=== PATIENT | female | born 1950 | race Caucasian/White ===

== ENCOUNTER 2024-12-10 07:48 | Outpatient (REF) | payer OTHER, SELFPAY ==
--- OUTSIDE RECORDS SUMMARY | 2024-12-08 09:15 | XMS_ITS | Encounter Summary ---
Author Organization [facility] Address [address] [place] [address] Care Team Providers Care Online Project Manager Name Role Phone Nhan Roque MD Primary Care Provider [phone] Reason for Visit * Reason Comments Med Refill Encounter Details Date Type Department Care Team (Late st Contact Info) Description 12/08/2024 9:15 AM EDT Office Visit Internal Medicine - [address] [phone] Rachel Darby, SHUN [address] [place] [id number] Mixed hyperlipidemia (Primary Dx); Hypertension, unspecified type; Peripheral neuralgia; Neuropathy; Chronic pain syndrome; Vitamin D deficiency; Irritable bowel syndrome with both constipation and diarrhea; Osteopenia of lumbar spine; Spinal stenosis at L4-L5 level; Anxiety Social History Tobacco Use Types Packs/Day Years Used Date Smoking Tobacco: Former Smokeless Tobacco: Former Quit: 03/12/2007 Tobacco Cessation:Counseling Given: Not Answered Alcohol Use Standard Drinks/Week Comments No 0 (1 standard drink = 0.6 oz pur e alcohol) Comments No Sex and Gender Information Value Date Recorded Sex Assigned at Female 07/18/2024 12:25 PM EDT Legal Sex Female 8:33 AM EST Gender Identity Female 07/18/2024 12:25 PM EDT Sexual Orientation Straight 07/18/2024 12 :25 PM EDT documented as of this encounter Last Filed Vital Signs Vital Sign Reading Time Taken Comments Blood Pressure 110/70 12/08/2024 9:35 AM EDT Pulse 89 12/08/2024 9:11 AM EDT auto cuff Temperature 36.6 C (97.9 F) 12/08/2024 9:11 AM EDT Respiratory Rate - - Oxygen Saturation - - Inhaled Oxygen Concentration - - Weight 75.9 kg (167 lb 4.8 oz) 12/08/2024 9:11 A M EDT Height - - Body Mass Index 29.64 09/17/2024 11:13 AM EDT documented in this encounter Ordered Prescriptions Prescription Sig Dispense Quantity Refills Last Filled Start Date End Date calcium carbonate-vitamin D (Oyster Shell Calcium-Vit D3) 500 mg-5 mcg (200 unit) per tablet Take 1 tablet by mouth 1 (one) time each day. 90 each 3 12/08/2024 12/08/2025 documented in this encounter Progress Notes * Rachel Rios, SHUN - 12/08/2024 9:15 AM EDT CHIEF COMPLAINT: Med Refill IDENTIFIER: Talia Narvaez is a 74 y.o. old female. HPI: Talia Narvaez is here today for med review follow-up. Hyperlipidemia. The patient is currently taking atorvastatin 40 mg 1 tablet by mouth daily and denies concerns or complaints. Last cholesterol panel was normal on 07/16/2024. Hypertension. Today's blood pressure is 117/99 with a pulse of 89. Blood pressure will be repeated later. No complaints of chest pain or palpitations, dizziness or lightheadedness, shortness of breath or fatigue. During visit today Referral neurology and neuropathy. Patient takes Lyrica 100 mg capsules as well as tramadol for pain in order to manage the symptoms. Chronic pain syndrome. Patient has pain due to the neuropathy as well as generalized bodyaches and does take tramadol as needed for the pain. Denies side effects. Patient has a history of vitamin D deficiency. Patient is taking calcium and vitamin D. IBS. Patient is not taking any medication for this but states he does have constipation followed bydiarrhea. Denies abdominal painduring today's visit. Osteopenia. Patient is taking calcium and vitamin D. Spinal stenosis. Patient continues taking tramadol as needed for pain. Anxiety. Patient is on Ativan as needed. Patient recently suffered a loss of her long-term, 10-yearboyfriend. Patient is dealing with the loss. ROS: Constitutional: no weakness fever/ sweats, or weight change HEENT: no acute vision changes, ear pain, sore throat, nasal discharge. Respiratory: no shortness of breath, cough or wheezing Cardiovascular:no chest pain or palpitations, no orthopnea or edema GI: no nausea, vomiting or diarrhea; no rectal bleeding or dark stools MSK: no joint or muscle pain, swelling or impaired ROM Neuro: no acute headaches, dizziness, weakness. PAST MEDICAL HISTORY: Patient Active Problem List Diagnosis Date Noted Vitamin B12 deficiency 01/06/2021 Spinal stenosis at L4-L5 level 02/21/2019 Peripheral neuralgia 11/22/2018 Asteroid hyalitis of left eye 02/07/2017 Nuclear sclerosis of both eyes 02/07/2017 Ocular hypertension, bilateral 02/07/2017 Cortical cataract of left eye 02/07/2016 Irritable bowel syndrome with both constipation and diarrhea 01/18/2015 Osteopenia 07/01/2014 Vitamin D deficiency 07/01/2014 Chronic pain 01/13/2014 Hyperlipemia 01/13/2014 Neuropathy 01/13/2014 Anxiety 12/16/2013 HTN (hypertension) 12/16/2013 ACTIVE MEDICATIONS: Medications Taking[1] ALLERGIES: Allergies[2] PHYSICAL EXAM: Visit Vitals BP 110/70 Pulse 89 Comment: auto cuff Temp 36.6 ??C (97.9 ??F) (Oral) Wt 75.9 kg (167 lb 4.8 oz) BMI 29.64 kg/m?? OB Status Postmenopausal Smoking Status Former BSA 1.79 m?? General: the patient is awake, alert, cooperative and in no acute distress. Lungs: clear to auscultation without increased respiratory rate or effort. Heart: RRR. S1 and S2 heard, no MRG Extremities: no edema NEURO: AAOx3, patient is ambulatory with a steady gait without use of assistive device. IMPRESSION: 1. Mixed hyperlipidemia 2. Hypertension, unspecified type 3. Peripheral neuralgia 4. Neuropathy 5. Chronic pain syndrome 6. Vitamin D deficiency 7. Irritable bowel syndrome with both constipation and diarrhea 8. Osteopenia of lumbar spine 9. Spinal stenosis at L4-L5 level 10. Anxiety ASSESMENT/ PLAN: 1. Hyperlipidemia. Stable. Continue current regimen. 2. Hypertension. Stable. Blood pressure rechecked and it is at 110/70. Continue current regimen. 3. Peripheral neuralgia, neuropathy, chronic pain syndrome and spinal stenosis. Stable. Patient to continue using the tramadol as Lyrica as prescribed. 4. Vitamin D deficiency. Stable. Patient to continue taking vitamin D supplements. 5. IBS. Stable. Patient declines medication for constipation. 6. Osteopenia. Stable. Patient to continue using calcium and vitamin D. 7. Anxiety. Stable. Patient uses lorazepam as needed due to the loss of her longtime partner. Patient to follow-up in 3 months with PCP. Medication and lab orders: No orders of the defined types were placed in this encounter. Other orders: None Rachel Rios NP on 12/08/2024 at 10:34 AM EDT Discussed red flags that would warrant further evaluation. Plan of care reviewed with patient and patient verbalized understanding and is in agreement with plan. Today's documentation was made using voice recognition software.This note may contain grammatical errors secondary to this software. [1] Outpatient Medications Marked as Taking for the 12/08/24 encounter (Office Visit) with Rachel Rios NP Medication Sig Dispense Refill atorvastatin (LIPITOR) 40 mg tablet TAKE 1 TABLET BY MOUTH EVERY DAY 90 tablet 0 LORazepam (ATIVAN) 0.5 mg tablet TAKE 1 TABLET BY MOUTH EVERY DAY FOR 28 DAYS MAX 0.5MG/DAY 28 tablet 0 pregabalin (LYRICA) 100 mg capsule take 1 capsule by mouth three times a day for 30 days traMADoL (ULTRAM) 50 mg tablet TAKE 1 TABLET BY MOUTH EVERY 8 HOURS NEEDED FOR SEVERE PAIN. 84 tablet 0 [2] Allergies Allergen Reactions Codeine Up set attiude documented in this encounter Plan of Treatment Upcoming Encounters Date Type Department Care Team (Late st Contact Info) Description 03/10/2025 8:15 AM EST Office Visit Internal Medicine - [address] [phone] Nhan Roque MD [address] [place] [id number] documented as of this encounter Visit Diagnoses Diagnosis Mixed hyperlipidemia- Primary Hypertension, unspecified type Peripheral neuralgia Unspecified hereditary and idiopathic peripheral neuropathy Neuropathy Mononeuritis of unspecified site Chronic pain syndrome Vitamin D deficiency Irritable bowel syndrome with both constipation and diarrhea Osteopenia of lumbar spine Spinal stenosis at L4-L5 level Anxiety Anxiety state, unspecified documented in this encounter Care Teams Online Project Manager Relationship Specialty Start Date End Date Nhan Roque MD [address] [place] [id number] PCP - General Internal Medicine 03/10/24 documented as of this encounter
--- OUTSIDE RECORDS SUMMARY | 2024-12-10 07:52 | XMS_ITS | Clinical Summary ---
Author Organization [place] [address] [address] [facility] Address [address] [place] [address] Phone Care Team Providers Care [employer] Supervisor Name Role Phone Nhan Roque MD Primary Care Provider [phone] Allergies Active Allergy Reactions Criticality Noted Date Comments Codeine 12/08/2013 Up set attiude Medications pregabalin (LYRICA) 100 mg capsule take 1 capsule by mouth three times a day for 30 days Active atorvastatin (LIPITOR) 40 mg tabletIndicatio ns:Hyperlipidem ia, unspecified TAKE 1 TABLET BY MOUTH EVERY DAY 90 tablet 5 Active LORazepam (ATIVAN) 0.5 mg tablet TAKE 1 TABLET BY MOUTH EVERY DAY FOR 28 DAYS MAX 0.5MG/DAY 28 tablet 5 Active traMADoL (ULTRAM) 50 mg tablet TAKE 1 TABLET BY MOUTH EVERY 8 HOURS NEEDED FOR SEVERE PAIN. 84 tablet 5 Active calcium carbonate-vitam in D (Oyster Shell Calcium-Vit D3) 500 mg-5 mcg (200 unit) per tablet Take 1 tablet by mouth 1 (one) time each day. 90 each 3 5 026 Active atorvastatin (LIPITOR) 40 mg tabletIndicatio ns:Hyperlipidem ia, unspecified TAKE 1 TABLET BY MOUTH EVERY DAY 90 tablet 5 025 Discontinued LORazepam (ATIVAN) 0.5 mg tablet TAKE 1 TABLET BY MOUTH EVERY DAY FOR 28 DAYS MAX 0.5MG/DAY 28 tablet 5 025 Discontinued traMADoL (ULTRAM) 50 mg tablet TAKE 1 TABLET BY MOUTH EVERY 8 HOURS NEEDED FOR SEVERE PAIN. 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 Nuclear sclerosis of both eyes 02/07/2017 Ocular hypertension, bilateral 02/07/2017 Cortical cataract of left eye 02/07/2016 Irritable bowel syndrome wit h both constipation and diarrhea 01/18/2015 Osteopenia 07/01/2014 Vitamin D deficiency 07/01/2014 Chronic pain 01/13/2014 Hyperlipemia 01/13/2014 Neuropathy 01/13/2014 Anxiety 12/16/2013 HTN (hypertension) 12/16/2013 Resolved Problems Problem Noted Date Diagnosed Date Resolved Date History of alcohol abuse 08/10/2015 Encounters Date Type Department Care Team Description 12/08/2024 9:15 AM EDT Office Visit Internal Medicine - [address] [phone] Rachel Darby NP Mixed hyperlipidemia (Primary Dx); Hypertension, unspecified type; Peripheral neuralgia; Neuropathy; Chronic pain syndrome; Vitamin D deficiency; Irritable bowel syndrome with both constipation and diarrhea; Osteopenia of lumbar spine; Spinal stenosis at L4-L5 level; Anxiety 09/29/2024 Telephone Internal Medicine - [address] [phone] Nhan Roque MD 09/24/2024 4:46 PM EDT - 09/24/2024 11:59 PM EDT Hospital Encounter [facility] [address] [place] [address] Elbow mass, left Discharge Disposition: Home or Self Care 09/17/2024 11:00 AM EDT Consult Orthopedic Surgery [facility] [address] [place] [id number] Preston Muñiz MD Elbow mass, left (Primary Dx); Ganglion cyst; Numbness and tingling in left hand from Last 3 Months Immunizations Immunization Administration Dates Next Due Influenza Quadravalent, MDCK , 0.5ml, preservative free (Flucelvax) 6mo and older 11/22/2018 Influenza trivalent, 0.5mL ( Fluad) 65yo and older 12/15/2022,12/19/2021,11/16/2020,11/18 Influenza trivalent, 0.5mL, preservative free (Fluarix; FluLaval; Fluzone) ages 6mo and older (Afluria) 3 years and older 11/23/2017 Moderna SARS-CoV-2 COVID-19, mRNA, LNP-S, preservative free 06/28/2021,02/10/2021,12/28/2020,06/24 Pneumococcal polysaccharide 23 valent (Pneumovax 23) 2yo and older 04/28/2014 Tdap Tetanus diptheria acell ular pertussis (Boostrix; Adacel) 7yo and older 01/13/2014 Zoster Live 08/25/2014 Surgical History Surgery Date Site/Laterality Comments COLONOSCOPY 02/01/2015 PROCEDURE: HISTORICAL COLONOSCOPY; COMMENT: Negative, limited examination because of poor preparation. OTHER SURGICAL HISTORY 02/24/2015 PROCEDURE: FECAL DNA ANALYSIS; COMMENT: Negative Cologuard test. WRIST MASS EXCISION Left PROCEDURE: LA EXCISION GANGLION WRIST DORSAL/VOLAR PRIMARY Medical History Medical History Date Comments Alcoholic hepatitis (CMS/HCC V28) DX:Alcoholic hepatitis Peripheral neuropathy DX:Periphe ral neuropathy Spastic colon DX:Spastic colon Alcoholism /alcohol abuse DX:Alc oholism /alcohol abuse Thoracic outlet syndrome DX:Thor acic outlet syndrome Diverticulosis DX:Diverticulosi s Anemia DX:Anemia HTN (hypertension) DX:HTN (hyper tension) Ataxia DX:Ataxia; COMME NT: post column - followed by der. [facility] neuro History of colonoscopy 03/03/2015 DX:Histor y of colonoscopy; COMMENT: Difficult/incomplete colonoscopy 2014, negative Cologuard testing 02/24/2015, consider repeat Cologuard testing 02/24/2018. Family History Medical History Relation Name Comments No Known Problems Brother 1 Lung cancer Brother 2 Alcohol abuse Father Diabetes Father Cataracts Mother Breast cancer Other cousin Other: Other Sister 1 brain wall thin hadley Alzheimer's disease Sister 2 Blindness Neg Hx Glaucoma Neg Hx Macular degeneration Neg Hx Strabismus Neg Hx Relation Name Status Comments Brother 1 Alive Brother 2 Father Mother Other cousin Sister 1 Sister 2 Social History Tobacco Use Types Packs/Day Years [...] Orientation Straight 07/18/2024 12 :25 PM EDT Obstetrics History Last Filed Vital Signs Vital Sign Reading Time Taken Comments Blood Pressure 110/70 12/08/2024 9:35 AM EDT Pulse 89 12/08/2024 9:11 AM EDT auto cuff Temperature 36.6 C (97.9 F) 12/08/2024 9:11 AM EDT Respiratory Rate - - Oxygen Saturation - - Inhaled Oxygen Concentration - - Weight 75.9 kg (167 lb 4.8 oz) 12/08/2024 9:11 A M EDT Height 160 cm (5' 3 ) 09/17/2024 11:13 AM EDT Body Mass Index 29.64 09/17/2024 11:13 AM EDT Plan of Treatment Upcoming Encounters Date Type Department Care Team (Late st Contact Info) Description 03/10/2025 8:15 AM EST Office Visit Internal Medicine - [address] [phone] Nhan Roque MD [address] [place] [phone] Health Maintenance Due Date Last Done Comments Falls Risk Assessment 02/12/2022 Osteoporosis Screening (Bone Density Screening) 02/12/2022 Social Influencers of Health Screening 02/12/2022 Depression Screening 03/12/2024 COVID-19 Vaccine ( season) 2024 02/24/2024, 12/19/2021, 06/28/2021, Additional history exists Influenza Vaccine (#1) 2024 , 12/15/2022, 12/19/2021, Additional history exists Hypertension/CHF/CAD Annual BMP Blood Test 07/16/2025 07/16/2024, 12/03/2023, 12/03/2023 Cholesterol Screening (Lipid Panel) 07/16/2029 07/16/2024, 12/03/2023, 12/03/2023 DTaP,Tdap,and Td Vaccines (3 - Td or Tdap) 12/16/2033 12/17/2023, 01/13/2014 Hepatitis C Screening Completed 12/17/2013 Colorectal Cancer Screening: Colonoscopy Discontinued 02/01/2015 Pneumococcal Vaccine: 50+ Years Completed 11/29/2020, 11/25/2019, 04/28/2014 RSV Immunization Adult Patients Completed 12/15/2022 Zoster Vaccines Completed 02/24/2024, 09/2023, 08/25/2014 Breast Cancer Screening Discontinued 08/16/19, 04/10/2023, 03/27/2022, Additional history exists HIB Vaccines Aged Out No longer eligi ble based on patient's age to complete this topic HPV Vaccines Aged Out No longer eligi ble based on patient's age to complete this topic Hepatitis A Vaccines Aged Out No long er eligible based on patient's age to complete this topic Hepatitis B Vaccines Aged Out No long er eligible based on patient's age to complete this topic IPV Vaccines Aged Out No longer eligi ble based on patient's age to complete this topic MMR Vaccines Aged Out No longer eligi ble based on patient's age to complete this topic Meningococcal ACWY Vaccine Aged Out N o longer eligible based on patient's age to complete this topic Meningococcal B Vaccine Aged Out No l onger eligible based on patient's age to complete this topic RSV Immunization Patients Under 20 months Aged Out No longer eligible based on patient's age to complete this topic Varicella Vaccines Aged Out No longer eligible based on patient's age to complete this topic Procedures Procedure Name Priority Date/Time Associated Diagnosis Comments MR ELBOW WO CONTRAST LEFT Routine 09/24/2024 6:58 PM EDT Elbow mass, left XR ELBOW 3+ VIEWS LEFT Routine 09/17/2024 10:59 AM EDT Ganglion cyst MG MAMMO DIGITAL SCREENING W JOHNNIE BILAT Routine 08/15/2024 9:20 AM EDT Encounter for screening mammogram for breast cancer BASIC METABOLIC PANEL Routine 07/16/2024 9:36 AM EDT Pure hypercholesterolemia LIPID PANEL WITH REFLEX TO DIRECT LDL Routine 07/16/2024 9:36 AM EDT Pure hypercholesterolemia COLONOSCOPY Routine 02/01/2015 HEPATITIS C SCREENING Routine 12/17/2013 from Last 3 Months or Most Recently Relevant to Health Maintenance Results * MR Elbow wo Contrast Left (09/24/2024 6:58 PM EDT) Anatomical Region Laterality Modality Upper Extremities, Elbow Left Magneti c Resonance 09/25/2024 10:0 7 AM EDT Impressions 09/30/2024 9:44 AM EDT 1. No soft tissue mass or fluid collection at a site of indicated concern overlying the posterolateral proximal ulna. 2. Nonspecific edema superficial to medial humeral epicondyle. The underlying common flexor tendon appears normal. -------- FINAL REPORT -------- Dictated By: Karlos Melara Dictated Date: 09/25/2024 10:07 ET Assigned Physician: Karlos Melara Reviewed and Electronically Signed By: Karlos Melara Signed Date: 09/30/2024 09:44 ET Workstation ID: [id number] Transcribed By: Self Edit Transcribed Date: 09/25/2024 11:46 ET Narrative 09/30/2024 9:44 AM EDT PROCEDURE: Noncontrast MRI of the left elbow. TECHNIQUE: Multiplanar multisequence MRI of the left elbow without intravenous contrast administration. HISTORY: posterolateral soft tissue mass COMPARISON: None. FINDINGS: This study is mildly limited by patient motion. A marker placed to indicate the site of palpable concern overlies the posterolateral proximal ulna. There is no underlying soft tissue mass or fluid collection. The triceps, biceps, and brachialis tendons are normal. There is edema in the subcutaneous fat overlying the medial humeral epicondyle, superficial to the common flexor tendon origin. The common flexor and extensor tendon origins appear normal. The regional musculature is normal. The collateral ligaments of the elbow are normal. Regional neurovascular structures are normal. No significant elbow joint effusion. Normal alignment. Minimal osteophytes arising from the coronoid and olecranon process of the ulna and along the lateral trochlea. Procedure Note Karlos Melara MD - 09/30/2024 PROCEDURE: Noncontrast MRI of the left elbow. TECHNIQUE: Multiplanar multisequence MRI of the left elbow withoutintravenous contrast administration. HISTORY: posterolateral soft tissue mass COMPARISON: None. FINDINGS: This study is mildly limited by patient motion. A marker placed to indicate the site of palpable concern overlies theposterolateral proximal ulna. There is no underlying soft tissue mass orfluid collection. The triceps, biceps, and brachialis tendons are normal. There is edema in the subcutaneous fat overlying the medial humeralepicondyle, superficial to the common flexor tendon origin. The commonflexor and extensor tendon origins appear normal. The regionalmusculature is normal. The collateral ligaments of the elbow are normal. Regional neurovascular structures are normal. No significant elbow joint effusion. Normal alignment. Minimal osteophytes arising from the coronoid andolecranon process of the ulna and along the lateral trochlea. IMPRESSION: 1. No soft tissue mass or fluid collection at a site of indicated concernoverlying the posterolateral proximal ulna. 2. Nonspecific edema superficial to medial humeral epicondyle. Theunderlying common flexor tendon appears normal. -------- FINAL REPORT -------- Dictated By: Karlos Melara Dictated Date: 09/25/2024 10:07 ET Assigned Physician: Karlos Melara Reviewed and Electronically Signed By: Karlos Melara Signed Date: 09/30/2024 09:44 ET Workstation ID: [id number] Transcribed By: Self Edit Transcribed Date: 09/25/2024 11:46 ET us Preston Muñiz MD IMG MRI PROCEDURES Final Result * XR Elbow 3+ Views Left (09/17/2024 10:59 AM EDT) Anatomical Region Laterality Modality Upper Extremities, Elbow Left Compute d Radiography Narrative 09/17/2024 11:42 AM EDT Three-view x-rays of the left elbow shows no evidence of fracture or dislocation. The radiocapitellar and ulnohumeral joint are congruent. Soft tissue shadows appear normal. Impression: Normal radiographs of the left elbow without acute osseous abnormalities. us Preston Muñiz MD IM XR PROCEDURES Final Result * MG Mammo Digital Screening w Johnnie bilat (08/15/2024 9:20 AM EDT) Anatomical Region Laterality Modality Breast Bilateral Mammography 08/15/2024 9:40 AM EDT Impressions 08/15/2024 9:44 AM EDT No mammographic evidence of malignancy. A negative mammogram in the presence of a clinically suspicious palpable abnormality does not preclude the possibility of malignancy or alter the indications for biopsy. PQRI CPT II 3342F Code 85358, 57576 PQRI 225 CPT II 7025F TISSUE DENSITY: The breasts are almost entirely fatty. (BI-RADS Category A) IMPRESSION: Benign. BI-RADS CATEGORY: 2 - BENIGN RECOMMENDATION: Screening bilateral mammogram is recommended in 1 year. Mammo Location: [facility], [address] [place] [address] -------- FINAL REPORT -------- Dictated By: Abelardo Deluna Dictated Date: 08/15/2024 09:40 ET Assigned Physician: Abelardo Deluna Reviewed and Electronically Signed By: Abelardo Deluna Signed Date: 08/15/2024 09:44 ET Workstation ID: [id number] Transcribed By: Self Edit Transcribed Date: 08/15/2024 09:40 ET Narrative 08/15/2024 9:44 AM EDT CLINICAL: The patient is a 74 years Female presenting for routine screening mammography. COMPARISON: Most recently 04/10/2023 and most remotely 03/02/2017. TECHNIQUE: Full-field digital mammography of the breasts bilaterally consisting of tomosynthesis in MLO and CC projection is performed in the [employer] 2000-D unit. Computer aided detection utilizing the iCAD system was utilized. FINDINGS: The breasts are again seen to be largely fatty replaced. Scattered vascular calcifications are noted. There is no suspicious cluster of microcalcifications, mass, or area of architectural distortion. There is no skin thickening or nipple retraction. Procedure Note Abelardo Deluna MD - 08/15/2024 CLINICAL: The patient is a 74 years Female presenting for routinescreening mammography. COMPARISON: Most recently 04/10/2023 and most remotely 03/02/2017. TECHNIQUE: Full-field digital mammography of the breasts bilaterallyconsisting of tomosynthesis in MLO and CC projection is performed in theRestorius Senographe 2000-D unit. Computer aided detection utilizing the iCADsystem was utilized. FINDINGS: The breasts are again seen to be largely fatty replaced.Scattered vascular calcifications are noted. There is no suspiciouscluster of microcalcifications, mass, or area of architectural distortion.There is no skin thickening or nipple retraction. IMPRESSION: No mammographic evidence of malignancy. A negative mammogram in the presence of a clinically suspicious palpableabnormality does not preclude the possibility of malignancy or alter theindications for biopsy. PQRI CPT II 3342F Code 31837, 39779 PQRI 225 CPT II 7025F TISSUE DENSITY: The breasts are almost entirely fatty. (BI-RADS CategoryA) IMPRESSION: Benign. BI-RADS CATEGORY: 2 - BENIGN RECOMMENDATION: Screening bilateral mammogram is recommended in 1 year. Mammo Location: [facility], [address] [place] [id number] -------- FINAL REPORT -------- Dictated By: Abelardo Deluna Dictated Date: 08/15/2024 09:40 ET Assigned Physician: Abelardo Deluna Reviewed and Electronically Signed By: Abelardo Deluna Signed Date: 08/15/2024 09:44 ET Workstation ID: [id number] Transcribed By: Self Edit Transcribed Date: 08/15/2024 09:40 ET us Self Referral Sppl IMG BI PROCEDURES Final Resul t * Lipid panel with reflex to direct LDL (07/16/2024 9:36 AM EDT) Cholesterol 167 0 - 200 mg/dL LAB CHEMISTRY METHOD 07/16/2024 5:[address] [facility] Triglycerides 116 0 - 150 mg/dL LAB CHEMISTRY METHOD 07/16/2024 5:[address] [facility] HDL 65 >=40 mg/dL LAB CHEMISTRY METHOD 07/16/2024 5:[address] [facility] LDL Calculated 79 0 - 100 mg/dL LAB CHEMISTRY METHOD 07/16/2024 5:[address] [facility] VLDL Cholesterol Rajeev 23.2 mg/dL LAB CHEMISTRY METHOD 07/16/2024 5:[address] [facility] Non HDL Chol. (LDL+VLDL) 102 <145 mg/dL LAB CHEMISTRY METHOD 07/16/2024 5:[address] [facility] Chol/HDL Ratio 2.6 0.0 - 4.4 LAB CHEMISTRY METHOD 07/16/2024 5:08 PM [facility] Blood Venous blood specimen / Unknown Venipuncture / Unknown 07/16/2024 9:36 AM EDT 07/16/2024 9:36 AM EDT us Nhan Roque MD LAB BLOOD ORDERABLES Final Res ult [facility] [address] [place] [address], [place] [phone] * Basic metabolic panel (07/16/2024 9:36 AM EDT) Sodium 137 133 - 145 mmol/L LAB CHEMISTRY METHOD 07/16/2024 5:[address] [facility] Potassium 4.5 3.5 - 5.5 mmol/L LAB CHEMISTRY METHOD 07/16/2024 5:08 PM [facility] Chloride 105 96 - 110 mmol/L LAB CHEMISTRY METHOD 07/16/2024 5:08 PM [facility] CO2 26 21 - 32 mmol/L LAB CHEMISTRY METHOD 07/16/2024 5:08 PM [facility] Anion Gap 6 3 - 11 LAB CHEMISTRY METHOD 07/16/2024 5:08 PM [facility] Glucose 92 70 - 100 mg/dL LAB CHEMISTRY METHOD 07/16/2024 5:08 PM [facility] BUN 11 5 - 25 mg/dL LAB CHEMISTRY METHOD 07/16/2024 5:08 PM [facility] Creatinine 0.94 0.50 - 1.10 mg/dL LAB CHEMISTRY METHOD 07/16/2024 5:08 PM [facility] eGFR 63 >=60 mL/min/1. 73m2 LAB CHEMISTRY METHOD 07/16/2024 5:08 PM [facility] Comment:Calculation based on the Chronic Kidney Disease Epidemiology Collaboration (CKD-EPI) equation refit without adjustment for race. BUN/Creatinine Ratio 11.7 LAB CHEMISTRY METHOD 07/16/2024 5:08 PM [facility] Calcium 9.5 8.5 - 10.5 mg/dL LAB CHEMISTRY METHOD 07/16/2024 5:08 PM [facility] Blood Venous blood specimen / Unknown Venipuncture / Unknown 07/16/2024 9:36 AM EDT 07/16/2024 9:36 AM EDT us Nhan Roque MD LAB BLOOD ORDERABLES Final Res ult [facility] [address] [place] [address], * Colonoscopy (02/01/2015) Colonoscopy no interpretation , abstracted Anatomical Region Laterality Modality Other us Historical Provider HEALTH MAINTENANCE Final Result * Hepatitis C Screening (12/17/2013) Hepatitis C Screening abstracted us Historical Provider HEALTH MAINTENANCE Final Result from Last 3 Months or Most Recently Relevant to Health Maintenance Insurance [facility] Advance Directives Documents on File Type Date Recorded Patient Primary Health Care Nurse Expl anation Health Care Decision (hx) 10/04/2013 AD RAIN DIRECTIVE Health Care Decision (hx) 10/04/2013 AD RAIN DIRECTIVE Health Care Decision (hx) 10/04/2013 AD RAIN DIRECTIVE Health Care Decision (hx) 10/04/2013 AD RAIN DIRECTIVE Care Teams [employer] Supervisor Relationship Specialty Start Date End Date Nhan Roque MD [address] [place] [id number] PCP - General Internal Medicine 03/10/24
--- NOTE | 2024-12-10 08:34 | EMG_ITS ---
Chief complaint: History of peripheral neuropathy attributed with past alcohol abuse. Noted a lump on left elbow. Complains of numbness on left hand particularly 5th digit. Reason for referral: Evaluate for ulnar neuropathy Referred by: Jacobo HODGE Procedure done: Left upper extremity NCS/EMG Precautions and/or limitations: None The limb temperature was monitored continuously and remained between 32-36 degrees C during the performance of the NCS. Ulnar motor NCS was performed with moderate elbow flexion between 70-90 degrees, with across-elbow distance of 10 cm. Nerve Conduction Studies Anti Sensory Summary Table ?Stim Site NR Onset (ms) Norm Onset (ms) Peak (ms) Norm Peak (ms) O-P Amp (?V) Norm O-P Amp Site1 Site2 Delta-0 (ms) Dist (cm) [place] (m/s) Norm [place] (m/s) Left Median Anti Sensory (2nd Digit) Wrist ? 3.6 4.8 <3.6 13.8 >10 Wrist 2nd Digit 3.6 14.0 39 Left Radial Anti Sensory (Thumb) Forearm ? 2.3 3.0 <3.1 9.0 Forearm Thumb 2.3 0.0 Left Ulnar Anti Sensory (5th Digit) Wrist ? 3.3 4.4 <3.7 12.0 >15.0 Wrist 5th Digit 3.3 14.0 42 Motor Summary Table ?Stim Site NR Onset (ms) Norm Onset (ms) O-P Amp (mV) Norm O-P Amp iAmp (mV) Amp (1st) (%) Site1 Site2 Delta-0 (ms) Dist (cm) [place] (m/s) Norm [place] (m/s) Left Median Motor (Abd Poll Brev) Wrist ? 4.3 <3.9 10.6 >4.5 12.4 100.0 Elbow Wrist 3.4 0.0 >45 Elbow ? 7.7 9.9 11.9 93.4 Left Ulnar Motor (Abd Dig Minimi) Wrist ? 3.8 <3.0 9.0 >5 10.5 100.0 B Elbow Wrist 2.8 17.5 63 >45 B Elbow ? 6.6 8.1 9.8 90.0 A Elbow B Elbow 2.0 10.0 50 >45 A Elbow ? 8.6 7.5 9.4 83.3 EMG ?Side Muscle Nerve Root Ins Act Fibs Psw Amp Dur Poly Recrt Int Pat Comment Left 1stDorInt Ulnar C8-T1 Nml Nml Nml Nml Nml 0 Nml Complete Left FlexCarRad Median C6-7 Nml Nml Nml Nml Nml 0 Nml Complete Left FlexCarpiUln Ulnar C8,T1 Nml Nml Nml Nml Nml 0 Nml Complete Left Biceps Musculocut C5-6 Nml Nml Nml Nml Nml 0 Nml Complete Left Triceps Radial C6-7-8 Nml Nml Nml Nml Nml 0 Nml Complete Left Deltoid Axillary C5-6 Nml Nml Nml Nml Nml 0 Nml Complete FINDINGS: Left median motor nerve showed prolonged distal latency, normal amplitude and normal conduction velocity. Left ulnar motor nerve showed prolonged distal latency, normal amplitude and slight slowing of conduction velocity across the elbow. Left median sensory nerve showed prolonged peak latency. Left ulnar sensory nerve showed small amplitude and prolonged peak latency. All other nerves tested were within normal. Concentric needle EMG was performed in selected muscles of the left upper extremity. Study did not reveal signs of electric abnormalities as shown in the table above. IMPRESSION: 1. This is an abnormal study. 2. There is electrodiagnostic evidence for left ulnar neuropathy at the elbow. 3. There is electrodiagnostic evidence for left moderate-severe median neuropathy at the wrist, consistent with carpal tunnel syndrome. 3. There is no electrodiagnostic evidence for brachial plexopathy or cervical radiculopathy. Thank you for your kind referral. Jolynn Alfred MD, SAMANTHA Board Certified, [place] [employer] and [employer] (ABPMR) Board Certified, [place] Board of Electrodiagnostic Medicine (ABEM) [place] [id number] [facility]
== END 2024-12-10 07:49 | disposition home or self-care (01) ==
LOC: HO.NEURO 07:48
PROVIDERS: PCP Internal Medicine
DX: R20.0 Anesthesia of skin (principal); R20.2 Paresthesia of skin
CPT/HCPCS: 95886; 95909

== ENCOUNTER → 2024-12-10 08:34 | Outpatient (BNV) | payer OTHER, SELFPAY | PROVIDERS: PCP Internal Medicine; Visit Provider Physical Medicine & Rehabilitation | DX: G56.22 Lesion of ulnar nerve, left upper limb (principal); G56.02 Carpal tunnel syndrome, left upper limb | CPT/HCPCS: 95886; 95909 ==

== ENCOUNTER 2024-12-23 08:07 | Outpatient (AMB) | payer OTHER, SELFPAY ==
--- NOTE | 2024-12-23 08:10 | MHC.OFFVIS ---
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 Patient complains of left small finger numbness and tingling without sleep disturbance. Patient explains symptoms worsen with activity. Patient is most concerned for recurrent lumps on the volar and dorsal aspect of the left elbow. Denies any prior injuries or surgeries to the left hand.? 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 Patient complains of left small finger numbness and tingling without sleep disturbance. The patient reports that she does experience numbness and tingling in all digits of the left hand, but states that his worst in the small finger. Patient explains symptoms worsen with activity. Patient is most concerned for recurrent lumps on the volar and dorsal aspect of the left elbow. Denies any prior injuries or surgeries to the left hand.? [facility] Social History (Updated 12/23/24 @ 08:17 by ROMINA Ramírez) Alcohol intake: never Patient Tobacco Use Status: Former Tobacco user Current occupational status: retired Current occupation: rt handed Review of Systems Const All systems reviewed & are unremarkable except as noted in HPI and below Physical Exam Vital Signs: BMI result Body Mass Index 29.3 Extrem Other: Neuro: Normal sensation on the tips of all digits of the left hand in the office today. No thenar or intrinsic wasting. Good APB muscle firing and good finger cross. Vascular: Capillary refill brisk. ROM: Patient can make a fist and extend all their digits. Skin: No lacerations or abrasions noted. General: No ecchymosis. No erythema or evidence of infection. Results Reviewed Results Reviewed: IMPRESSION: 1. This is an abnormal study. 2. There is electrodiagnostic evidence for left ulnar neuropathy at the elbow. 3. There is electrodiagnostic evidence for left moderate-severe median neuropathy at the wrist, consistent with carpal tunnel syndrome. 3. There is no electrodiagnostic evidence for brachial plexopathy or cervical radiculopathy. Thank you for your kind referral. Jolynn Alfred MD, SAMANTHA Assessment & Plan Assessment & Plan (1) Cubital tunnel syndrome on left: Code(s): G56.22 - Lesion of ulnar nerve, left upper limb Category: Medical (2) Left carpal tunnel syndrome: Code(s): G56.02 - Carpal tunnel syndrome, left upper limb Category: Medical Plan 1. Left cubital tunnel syndrome 2. Left carpal tunnel syndrome Symptoms intermittent, daily, worse at night I educated the patient about the condition. I discussed both operative and nonoperative treatment options. The patient would like to proceed with surgery. The risks and benefits of operative treatment were discussed with the patient and the patient wishes to proceed with surgery. These risks include, but are not limited to, risk of damage to blood vessels, nerves, tendons, infection, recurrence, incomplete relief of preoperative symptoms, persistent pain, possible need for further surgery, and the risks associated with regional blocks and/or anesthesia. Plan is to take the patient to the operating room at some point in the next few weeks for the following procedures: 1. Left cubital tunnel release under general 2. Left carpal tunnel release under general All of the preoperative paperwork including the consent was discussed today. All of the patient's questions were answered in the clinic today. The patient understands that they will be in contact with our surgical device sales representative to discuss scheduling their procedure. Patient denies diabetes, blood thinners, asthma, heart issues, lung issues, kidney issues, or current smoking. Coding Level of Care Code New Pt Level 4 (56303) Diagnoses Cubital tunnel syndrome on left G56.22 Left carpal tunnel syndrome G56.02
[2024-12-23 08:15] VITALS: BMI 29.3
--- OUTSIDE RECORDS SUMMARY | 2024-12-23 08:15 | XMS_ITS | Clinical Summary ---
Author Organization [place] [address] [address] [facility] Building Address [address] [place] [address] Phone Care Team Providers Care Embedded Linux Developer Name Role Phone Nhan Roque MD Primary Care Provider [phone] Allergies Active Allergy Reactions Criticality Noted Date [...] day. 90 each 3 5 026 Active LORazepam (ATIVAN) 0.5 mg tablet TAKE [...] AM EDT [facility] [phone] Rachel Darby NP Mixed hyperlipidemia (Primary Dx); Hypertension, unspecified type; Peripheral neuralgia; Neuropathy; Chronic pain syndrome; Vitamin D deficiency; Irritable bowel syndrome with both constipation and diarrhea; Osteopenia of lumbar spine; Spinal stenosis at L4-L5 level; Anxiety 09/29/2024 Telephone Internal Medicine - [address] [phone] Nhan Roque MD 09/24/2024 4:46 PM EDT - 09/24/2024 11:59 PM EDT Hospital Encounter [facility] MRI [address] [place] [phone] Elbow mass, left Discharge Disposition: Home or Self Care from Last 3 Months Immunizations Immunization Administration [...] Cologuard test. WRIST MASS EXCISION Left PROCEDURE: [place] EXCISION GANGLION WRIST DORSAL/VOLAR PRIMARY Medical History Medical History Date Comments Alcoholic hepatitis (CMS/HCC V28) DX:Alcoholic hepatitis Peripheral neuropathy DX:Periphe ral neuropathy Spastic colon DX:Spastic colon Alcoholism /alcohol abuse DX:Alc oholism /alcohol abuse Thoracic outlet syndrome DX:Thor acic outlet syndrome Diverticulosis DX:Diverticulosi s Anemia DX:Anemia HTN (hypertension) DX:HTN (hyper tension) Ataxia DX:Ataxia; COMME NT: post column - followed by sheng Mcclelland History of colonoscopy 03/03/2015 DX:Histor y of [...] AM EST Office Visit Internal Medicine - [address] [phone] Nhan Roque MD [address] [place] [address] Health Maintenance Due Date Last Done Comments [...] 09/24/2024 6:58 PM EDT Elbow mass, left MG MAMMO DIGITAL SCREENING W JOHNNIE BILAT Routine 08/15/2024 9:20 AM EDT Encounter for screening mammogram for breast cancer BASIC METABOLIC PANEL Routine 07/16/2024 9:36 AM EDT Pure hypercholesterolemia LIPID PANEL WITH REFLEX TO DIRECT LDL Routine 07/16/2024 9:36 AM EDT Pure hypercholesterolemia HM COLONOSCOPY Routine 02/01/2015 HEPATITIS C SCREENING Routine [...] Signed Date: 09/30/2024 09:44 ET Workstation ID: [id number] Transcribed By: Self Edit Transcribed Date: 09/25/2024 [...] Signed Date: 09/30/2024 09:44 ET Workstation ID: [id number] Transcribed By: Self Edit Transcribed Date: 09/25/2024 11:46 ET Preston Muñiz MD [facility] [place] PROCEDURES Final Result * MG Mammo Digital [...] for biopsy. PQRI CPT II 3342F Code 34701, 38714 PQRI 225 CPT II 7025F TISSUE DENSITY: The breasts are almost entirely fatty. (BI-RADS Category A) IMPRESSION: Benign. BI-RADS CATEGORY: 2 - BENIGN RECOMMENDATION: Screening bilateral mammogram is recommended in 1 year. Mammo Location: [facility], [address] [place] [phone] -------- FINAL REPORT -------- Dictated By: Abelardo Deluna Dictated Date: 08/15/2024 09:40 ET Assigned Physician: Abelardo Deluna Reviewed and Electronically Signed By: Abelardo Deluna Signed Date: 08/15/2024 09:44 ET Workstation ID: [id number] Transcribed By: Self Edit Transcribed Date: 08/15/2024 09:40 ET Narrative 08/15/2024 9:44 AM EDT CLINICAL: The patient is a 74 years Female presenting for routine screening mammography. COMPARISON: Most recently 04/10/2023 and most remotely 03/02/2017. TECHNIQUE: Full-field digital mammography of the breasts bilaterally consisting of tomosynthesis in MLO and CC projection is performed in the [employer] 2000-D unit. Computer aided detection utilizing the CustomMadeD system was utilized. FINDINGS: The breasts are [...] MLO and CC projection is performed in theBioCuritye 2000-D unit. Computer aided detection utilizing the [...] for biopsy. PQRI CPT II 3342F Code 36894, 57704 PQRI 225 CPT II 7025F TISSUE DENSITY: The breasts are almost entirely fatty. (BI-RADS CategoryA) IMPRESSION: Benign. BI-RADS CATEGORY: 2 - BENIGN RECOMMENDATION: Screening bilateral mammogram is recommended in 1 year. Mammo Location: [facility], [address] [place] [address] -------- FINAL REPORT -------- Dictated By: Abelardo Deluna Dictated Date: 08/15/2024 09:40 ET Assigned Physician: Abealrdo Deluna Reviewed and Electronically Signed By: Abelardo Deluna Signed Date: 08/15/2024 09:44 ET Workstation ID: [id number] Transcribed By: Self Edit Transcribed Date: 08/15/2024 09:40 ET us Self Referral Sppl IMG BI PROCEDURES Final Resul t * Lipid panel with reflex to direct LDL (07/16/2024 9:36 AM EDT) Cholesterol 167 0 - 200 mg/dL LAB CHEMISTRY METHOD 07/16/2024 5:08 PM EDT [facility] Triglycerides 116 0 - 150 mg/dL LAB CHEMISTRY METHOD 07/16/2024 5:08 PM EDT [facility] HDL 65 >=40 mg/dL LAB CHEMISTRY METHOD 07/16/2024 5:08 PM EDT [facility] LDL Calculated 79 0 - 100 mg/dL LAB CHEMISTRY METHOD 07/16/2024 5:08 PM EDT [facility] VLDL Cholesterol Rajeev 23.2 mg/dL LAB CHEMISTRY METHOD 07/16/2024 5:08 PM EDT [facility] Non HDL Chol. (LDL+VLDL) 102 <145 mg/dL LAB CHEMISTRY METHOD 07/16/2024 5:08 PM EDT [facility] Chol/HDL Ratio 2.6 0.0 - 4.4 LAB CHEMISTRY METHOD 07/16/2024 5:08 PM [facility] Blood Venous blood specimen / Unknown Venipuncture / Unknown 07/16/2024 9:36 AM EDT 07/16/2024 9:36 AM EDT us Nhan Roque MD LAB BLOOD ORDERABLES Final Res ult [facility] [address] [place] [address], [place] [phone] * Basic metabolic panel (07/16/2024 9:36 AM EDT) Sodium 137 133 - 145 mmol/L LAB CHEMISTRY METHOD 07/16/2024 5:08 PM [facility] Potassium 4.5 3.5 - 5.5 mmol/L LAB CHEMISTRY METHOD 07/16/2024 5:08 PM [facility] Chloride 105 96 - 110 mmol/L LAB CHEMISTRY METHOD 07/16/2024 5:08 PM [facility] CO2 26 21 - 32 mmol/L LAB CHEMISTRY METHOD 07/16/2024 5:08 PM [facility] Anion Gap 6 3 - 11 LAB CHEMISTRY METHOD 07/16/2024 5:08 PM [facility] Glucose 92 70 - 100 mg/dL LAB CHEMISTRY METHOD 07/16/2024 5:08 PM [facility] BUN 11 5 - 25 mg/dL LAB CHEMISTRY METHOD 07/16/2024 5:08 PM [facility] Creatinine 0.94 0.50 - 1.10 mg/dL LAB CHEMISTRY METHOD 07/16/2024 5:08 PM [facility] eGFR 63 >=60 mL/min/1. 73m2 LAB CHEMISTRY METHOD 07/16/2024 5:08 PM [facility] Comment:Calculation based on the Chronic Kidney Disease Epidemiology Collaboration (CKD-EPI) equation refit without adjustment for race. BUN/Creatinine Ratio 11.7 LAB CHEMISTRY METHOD 07/16/2024 5:08 PM EDT [facility] Calcium 9.5 8.5 - 10.5 mg/dL LAB CHEMISTRY METHOD 07/16/2024 5:08 PM EDT [facility] Blood Venous blood specimen / Unknown Venipuncture / Unknown 07/16/2024 9:36 AM EDT 07/16/2024 9:36 AM EDT Nhan Roque MD LAB BLOOD ORDERABLES Final Res ult [facility] [address] [place] [address], [place] [phone] * Colonoscopy (02/01/2015) Colonoscopy no interpretation , abstracted Anatomical Region Laterality Modality Other Historical Provider HEALTH MAINTENANCE Final Result * Hepatitis C Screening (12/17/2013) Hepatitis C Screening abstracted Historical Provider HEALTH MAINTENANCE Final Result from Last 3 Months or Most Recently Relevant to Health Maintenance Insurance [facility] Advance Directives Documents on File Type Date Recorded 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
== END 2024-12-23 09:08 | disposition home or self-care (01) ==
LOC: HO.HOS 08:08
PROVIDERS: PCP Internal Medicine
DX: G56.22 Lesion of ulnar nerve, left upper limb (principal); G56.02 Carpal tunnel syndrome, left upper limb
CPT/HCPCS: 99204

== ENCOUNTER 2025-01-20 09:39 | Outpatient (AMB) | payer OTHER, SELFPAY ==
[2025-01-20 09:53] VITALS: BMI 29.3
--- NOTE | 2025-01-20 09:53 | A.OFFVIS_ITS ---
Vital Signs 01/20/25 09:53 Height 5 ft 2.5 in Weight 163 lb BMI 29.3 Intake Visit Reasons: Preop LT cubital/CTR 01/29/25 AR Intake Note: Talia is a 74 year old right hand dominant female who presents today pre- operatively for discussion of their Left Cubital & Carpal Tunnel Release scheduled for 01/29/[address] Cook. Consents signed in office today. Allergies codeine Adverse Reaction (Intermediate, Verified 01/20/25 09:53) Hallucinations morphine Adverse Reaction (Intermediate, Verified 01/20/25 11:10) Irritable HPI HPI Preop LT cubital/CTR 01/29/25 AR: Details: Talia is a 74 year old right hand dominant female who presents today pre- operatively for discussion of their Left Cubital & Carpal Tunnel Release scheduled for 01/29/[address] Cook. Consents signed in office today. No new medical diagnoses or medications since previous evaluation. No other acute complaints or concerns at this time. Patient would like to still proceed with surgery. [facility] Medical History (Updated 01/15/25 @ 09:12 by Ashlyn Mondragon RN) Spinal stenosis at L4-L5 level Anxiety Hyperlipidemia Osteopenia IBS (irritable bowel syndrome) HTN (hypertension) Peripheral neuralgia Ocular hypertension, bilateral Cortical cataract of left eye Nuclear sclerosis of both eyes Chronic pain Asteroid hyalosis of left eye Elevated cholesterol Surgical History (Updated 01/20/25 @ 11:09 by Ashlyn Mondragon RN) Hx of cervical discectomy Hx of excision of mass H/O colonoscopy Social History (Updated 12/23/24 @ 08:17 by ROMINA Ramírez) Are you a primary memory care director to a significant other at home: No Do you presently have visiting nurse or other home services: No Alcohol intake: never Patient Tobacco Use Status: Former Tobacco user Tobacco use type: Cigarette Years Smoked: 5 Current occupational status: retired Current occupation: rt handed Review of Systems Const All systems reviewed & are unremarkable except as noted in HPI and below Physical Exam Vital Signs: BMI result Body Mass Index 29.3 Extrem Other: Neuro: Normal sensation on the tips of all digits of the left hand in the office today. No thenar or intrinsic wasting. Good APB muscle firing and good finger cross. Vascular: Capillary refill brisk. ROM: Patient can make a fist and extend all their digits. Skin: No lacerations or abrasions noted. General: No ecchymosis. No erythema or evidence of infection. Assessment & Plan Assessment & Plan (1) Cubital tunnel syndrome on left: Code(s): G56.22 - Lesion of ulnar nerve, left upper limb Category: Medical (2) Left carpal tunnel syndrome: Code(s): G56.02 - Carpal tunnel syndrome, left upper limb Category: Medical Plan 1. Left cubital tunnel syndrome 2. Left carpal tunnel syndrome Symptoms intermittent, daily, worse at night I educated the patient about the condition. I discussed both operative and nonoperative treatment options. The patient would like to proceed with surgery. The risks and benefits of operative treatment were discussed with the patient and the patient wishes to proceed with surgery. These risks include, but are not limited to, risk of damage to blood vessels, nerves, tendons, infection, recurrence, incomplete relief of preoperative symptoms, persistent pain, possible need for further surgery, and the risks associated with regional blocks and/or anesthesia. Plan is to take the patient to the operating room at some point in the next few weeks for the following procedures: 1. Left cubital tunnel release under general 2. Left carpal tunnel release under general All of the preoperative paperwork including the consent was discussed today. All of the patient's questions were answered in the clinic today. The patient understands that they will be in contact with our surgical garment assembly supervisor to discuss scheduling their procedure. Patient denies diabetes, blood thinners, asthma, heart issues, lung issues, kidney issues, or current smoking. Coding Level of Care Code Est Pt Level 4 (81016) Diagnoses Cubital tunnel syndrome on left G56. Left carpal tunnel syndrome G56.02
--- OUTSIDE RECORDS SUMMARY | 2025-01-20 10:51 | XMS_ITS | Clinical Summary ---
Author Organization [place] [address] [address] [facility] Building Address [address] [place] [address] Phone Care Team Providers Care Medical Records Coder Name Role Phone Nhan Roque MD Primary Care Provider [phone] Allergies Active Allergy Reactions Criticality Noted Date Comments Codeine 12/08/2013 Up set attiude Medications pregabalin (LYRICA) 100 mg capsule take 1 capsule by mouth three times a day for 30 days Active atorvastatin (LIPITOR) 40 mg tabletIndicatio ns:Hyperlipidem ia, unspecified TAKE 1 TABLET BY MOUTH EVERY DAY 90 tablet 5 Active calcium carbonate-vitam in D [...] FOR SEVERE PAIN. 84 tablet 5 Active LORazepam (ATIVAN) 0.5 mg tablet TAKE 1 TABLET BY MOUTH EVERY DAY FOR 28 DAYS MAX 0.5MG/DAY 28 tablet 5 025 Discontinued traMADoL (ULTRAM) 50 mg tablet TAKE 1 TABLET BY MOUTH EVERY 8 HOURS NEEDED FOR SEVERE PAIN. 84 tablet 09/ 025 Discontinued Active Problems Problem [...] AM EDT Office Visit Internal Medicine - [address] [phone] Rachel Darby, SHUN Mixed hyperlipidemia (Primary Dx); Hypertension, unspecified type; Peripheral neuralgia; Neuropathy; Chronic pain syndrome; Vitamin D deficiency; Irritable bowel syndrome with both constipation and diarrhea; Osteopenia of lumbar spine; Spinal stenosis at L4-L5 level; Anxiety from Last 3 Months Immunizations Immunization Administration [...] Cologuard test. WRIST MASS EXCISION Left PROCEDURE: MN EXCISION GANGLION WRIST DORSAL/VOLAR PRIMARY Medical History [...] AM EST Office Visit Internal Medicine - [address] [phone] Nhan Roque MD [address] [place] [id number] Health Maintenance Due Date Last Done Comments [...] Procedure Name Priority Date/Time Associated Diagnosis Comments MG MAMMO DIGITAL SCREENING W JOHNNIE BILAT [...] Recently Relevant to Health Maintenance Results * MG Mammo Digital Screening w Johnnie bilat (08/15/2024 9:20 AM EDT) Anatomical Region Laterality Modality Breast Bilateral Mammography 08/15/2024 9:40 AM EDT Impressions 08/15/2024 9:44 AM EDT No mammographic evidence of malignancy. A negative mammogram in the presence of a clinically suspicious palpable abnormality does not preclude the possibility of malignancy or alter the indications for biopsy. PQRI CPT II 3342F Code 83404, 49779 PQRI 225 CPT II 7025F TISSUE DENSITY: The breasts are almost entirely fatty. (BI-RADS Category A) IMPRESSION: Benign. BI-RADS CATEGORY: 2 - BENIGN RECOMMENDATION: Screening bilateral mammogram is recommended in 1 year. Mammo Location: [facility], [address] [place] [id number] -------- FINAL REPORT -------- Dictated By: Abelardo Deluna Dictated Date: 08/15/2024 09:40 ET Assigned Physician: Abelardo Deluna Reviewed and Electronically Signed By: Abelardo Deluna Signed Date: 08/15/2024 09:44 ET Workstation ID: [id number] Transcribed By: Self Edit Transcribed Date: 08/15/2024 09:40 ET Narrative 08/15/2024 9:44 AM EDT CLINICAL: The patient is a 74 years Female presenting for routine screening mammography. COMPARISON: Most recently 04/10/2023 and most remotely 03/02/2017. TECHNIQUE: Full-field digital mammography of the breasts bilaterally consisting of tomosynthesis in MLO and CC projection is performed in the [employer] 2000-D unit. Computer aided detection utilizing the PrintEcoD system was utilized. FINDINGS: The breasts are [...] MLO and CC projection is performed in the[employer] Skate 2000-D unit. Computer aided detection utilizing the [...] for biopsy. PQRI CPT II 3342F Code 58508, 46448 PQRI 225 CPT II 7025F TISSUE DENSITY: The breasts are almost entirely fatty. (BI-RADS CategoryA) IMPRESSION: Benign. BI-RADS CATEGORY: 2 - BENIGN RECOMMENDATION: Screening bilateral mammogram is recommended in 1 year. Mammo Location: [facility], [address] [place] [id number] -------- FINAL REPORT -------- Dictated By: Abelardo Deluna Dictated Date: 08/15/2024 09:40 ET Assigned Physician: Abelardo Deluna Reviewed and Electronically Signed By: Abelardo Deluna Signed Date: 08/15/2024 09:44 ET Workstation ID: [id number] Transcribed By: Self Edit Transcribed Date: 08/15/2024 09:40 ET us Self Referral Sppl IMG BI PROCEDURES Final Resul t * Lipid panel with reflex to direct LDL (07/16/2024 9:36 AM EDT) Cholesterol 167 0 - 200 mg/dL LAB CHEMISTRY METHOD 07/16/2024 5:08 PM EDT [facility] Triglycerides 116 0 - 150 mg/dL LAB CHEMISTRY METHOD 07/16/2024 5:08 PM EDT [facility] HDL 65 >=40 mg/dL LAB CHEMISTRY METHOD 07/16/2024 5:08 PM EDT [facility] LDL Calculated 79 0 - 100 mg/dL LAB CHEMISTRY METHOD 07/16/2024 5:08 PM EDT [facility] VLDL Cholesterol Rajeev 23.2 mg/dL LAB CHEMISTRY METHOD 07/16/2024 5:08 PM EDT [facility] Non HDL Chol. (LDL+VLDL) 102 <145 mg/dL LAB CHEMISTRY METHOD 07/16/2024 5:08 PM EDT [facility] Chol/HDL Ratio 2.6 0.0 - 4.4 LAB CHEMISTRY METHOD 07/16/2024 5:08 PM [facility] Blood Venous blood specimen / Unknown Venipuncture / Unknown 07/16/2024 9:36 AM EDT 07/16/2024 9:36 AM EDT us Nhan Roque MD LAB BLOOD ORDERABLES Final Res ult [facility] [address] [place] [address], [place] [phone] * Basic metabolic panel (07/16/2024 9:36 AM EDT) Sodium 137 133 - 145 mmol/L LAB CHEMISTRY METHOD 07/16/2024 5:08 PM [facility] Potassium 4.5 3.5 - 5.5 mmol/L LAB CHEMISTRY METHOD 07/16/2024 5:08 PM [facility] Chloride 105 96 - 110 mmol/L LAB CHEMISTRY METHOD 07/16/2024 5:08 PM [facility] CO2 26 21 - 32 mmol/L LAB CHEMISTRY METHOD 07/16/2024 5:08 PM [facility] Anion Gap 6 3 - 11 LAB CHEMISTRY METHOD 07/16/2024 5:08 PM [facility] Glucose 92 70 - 100 mg/dL LAB CHEMISTRY METHOD 07/16/2024 5:08 PM [facility] BUN 11 5 - 25 mg/dL LAB CHEMISTRY METHOD 07/16/2024 5:08 PM [facility] Creatinine 0.94 0.50 - 1.10 mg/dL LAB CHEMISTRY METHOD 07/16/2024 5:08 PM [facility] eGFR 63 >=60 mL/min/1. 73m2 LAB CHEMISTRY METHOD 07/16/2024 5:08 PM EDT [facility] Comment:Calculation based on the Chronic Kidney Disease Epidemiology Collaboration (CKD-EPI) equation refit without adjustment for race. BUN/Creatinine Ratio 11.7 LAB CHEMISTRY METHOD 07/16/2024 5:08 PM EDT [facility] Calcium 9.5 8.5 - 10.5 mg/dL LAB CHEMISTRY METHOD 07/16/2024 5:08 PM EDT [facility] Blood Venous blood specimen / Unknown Venipuncture / Unknown 07/16/2024 9:36 AM EDT 07/16/2024 9:36 AM EDT Nhan Roque MD LAB BLOOD ORDERABLES Final Res ult [facility] [address] [place] [address], * Colonoscopy (02/01/2015) Colonoscopy no interpretation , abstracted Anatomical Region Laterality Modality Other Historical Provider HEALTH MAINTENANCE Final Result * Hepatitis C Screening (12/17/2013) [facility] Hepatitis C Screening abstracted Historical Provider HEALTH MAINTENANCE Final Result from Last 3 Months or Most Recently Relevant to Health Maintenance Insurance [facility] Advance Directives Documents on File Type Date Recorded 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
== END 2025-01-20 10:06 | disposition home or self-care (01) ==
LOC: HO.HOS 09:39
PROVIDERS: PCP Internal Medicine
DX: G56.22 Lesion of ulnar nerve, left upper limb (principal); G56.02 Carpal tunnel syndrome, left upper limb
CPT/HCPCS: 99024

== ENCOUNTER 2025-02-16 09:44 | Day surgery (SDC) | payer OTHER, SELFPAY ==
--- OUTSIDE RECORDS SUMMARY | 2024-12-25 12:36 | XMS_ITS | Clinical Summary ---
Author Organization [place] [address] [facility] [facility] Building Address [address] [place] [address] Phone Care Team Providers Care Motion Picture Set Up Worker Name Role Phone Nhan Roque MD Primary Care Provider [phone] Allergies Active Allergy Reactions Criticality Noted Date Comments Codeine 12/08/2013 Up set attiude Medications pregabalin (LYRICA) 100 mg capsule take 1 capsule by mouth three times a day for 30 days Active atorvastatin (LIPITOR) 40 mg tabletIndicatio ns:Hyperlipidem ia, unspecified TAKE 1 TABLET BY MOUTH EVERY DAY 90 tablet 5 Active traMADoL (ULTRAM) 50 mg [...] DAYS MAX 0.5MG/DAY 28 tablet 5 025 Active traMADoL (ULTRAM) 50 mg tablet TAKE 1 TABLET BY MOUTH EVERY 8 HOURS NEEDED FOR SEVERE PAIN. 90 tablet 5 025 Discontinued LORazepam (ATIVAN) 0.5 mg tablet TAKE 1 TABLET BY MOUTH EVERY DAY FOR 28 DAYS MAX 0.5MG/DAY 28 tablet 09/ 025 Discontinued Active Problems Problem Noted Date [...] AM EDT Office Visit Internal Medicine - [address] [phone] Rachel Darby NP Mixed hyperlipidemia (Primary Dx); Hypertension, unspecified type; Peripheral neuralgia; Neuropathy; Chronic pain syndrome; Vitamin D deficiency; Irritable bowel syndrome with both constipation and diarrhea; Osteopenia of lumbar spine; Spinal stenosis at L4-L5 level; Anxiety 09/29/2024 Telephone Internal Medicine - [address] [phone] Nhan Roque MD 09/24/2024 4:46 PM EDT - 09/24/2024 11:59 PM EDT Hospital Encounter [facility] MRI [address] [place] [phone] Elbow mass, left Discharge Disposition: Home or [...] Cologuard test. WRIST MASS EXCISION Left PROCEDURE: [place] EXCISION GANGLION WRIST DORSAL/VOLAR PRIMARY Medical History [...] AM EST Office Visit Internal Medicine - [address] [phone] Nhan Roque MD [address] [place] [address] Health Maintenance Due Date Last Done Comments [...] Signed Date: 09/30/2024 09:44 ET Workstation ID: [id number] Transcribed By: Self Edit Transcribed Date: 09/25/2024 [...] Signed Date: 09/30/2024 09:44 ET Workstation ID: [id number] Transcribed By: Self Edit Transcribed Date: 09/25/2024 11:46 ET Preston Muñiz MD [facility] PROCED[place] Final Result * MG Mammo [...] for biopsy. PQRI CPT II 3342F Code 34534, 70918 PQRI 225 CPT II 7025F TISSUE DENSITY: The breasts are almost entirely fatty. (BI-RADS Category A) IMPRESSION: Benign. BI-RADS CATEGORY: 2 - BENIGN RECOMMENDATION: Screening bilateral mammogram is recommended in 1 year. Mammo Location: [facility], [address] [place] [address] -------- FINAL REPORT -------- Dictated By: Abelardo Deluna Dictated Date: 08/15/2024 09:40 ET Assigned Physician: Abelardo Deluna Reviewed and Electronically Signed By: Abelardo Deluna Signed Date: 08/15/2024 09:44 ET Workstation ID: [id number] Transcribed By: Self Edit Transcribed Date: 08/15/2024 09:40 ET Narrative 08/15/2024 9:44 AM EDT CLINICAL: The patient is a 74 years Female presenting for routine screening mammography. COMPARISON: Most recently 04/10/2023 and most remotely 03/02/2017. TECHNIQUE: Full-field digital mammography of the breasts bilaterally consisting of tomosynthesis in MLO and CC projection is performed in the [employer] 2000-D unit. Computer aided detection utilizing the diaDexusD system was utilized. FINDINGS: The breasts are [...] MLO and CC projection is performed in the[employer] 2000-D unit. Computer aided detection utilizing the [...] for biopsy. PQRI CPT II 3342F Code 08130, 55645 PQRI 225 CPT II 7025F TISSUE DENSITY: The breasts are almost entirely fatty. (BI-RADS CategoryA) IMPRESSION: Benign. BI-RADS CATEGORY: 2 - BENIGN RECOMMENDATION: Screening bilateral mammogram is recommended in 1 year. Mammo Location: [facility], [address] [place] [id number] -------- FINAL REPORT -------- Dictated By: Abelardo Deluna Dictated Date: 08/15/2024 09:40 ET Assigned Physician: Abelardo Deluna Reviewed and Electronically Signed By: Abelardo Deluna Signed Date: 08/15/2024 09:44 ET Workstation ID: [id number] Transcribed By: Self Edit Transcribed Date: 08/15/2024 09:40 ET us Self Referral Sppl IMG BI PROCEDURES Final Resul t * Lipid panel with reflex to direct LDL (07/16/2024 9:36 AM EDT) Cholesterol 167 0 - 200 mg/dL LAB CHEMISTRY METHOD 07/16/2024 5:08 PM EDT [facility] Triglycerides 116 0 - 150 mg/dL LAB CHEMISTRY METHOD 07/16/2024 5:08 PM EDT [facility] HDL 65 >=40 mg/dL LAB CHEMISTRY METHOD 07/16/2024 5:08 PM EDT [facility] LDL Calculated 79 0 - 100 mg/dL LAB CHEMISTRY METHOD 07/16/2024 5:08 PM EDT [facility] VLDL Cholesterol Rajeev 23.2 mg/dL LAB CHEMISTRY METHOD 07/16/2024 5:08 PM EDT [facility] Non HDL Chol. (LDL+VLDL) 102 <145 mg/dL LAB CHEMISTRY METHOD 07/16/2024 5:08 PM EDT [facility] Chol/HDL Ratio 2.6 0.0 - 4.4 LAB CHEMISTRY METHOD 07/16/2024 5:[address] [facility] Blood Venous blood specimen / Unknown Venipuncture / Unknown 07/16/2024 9:36 AM EDT 07/16/2024 9:36 AM EDT us Nhan Roque MD LAB BLOOD ORDERABLES Final Res ult [facility] [address] [place] [address], * Basic metabolic panel (07/16/2024 9:36 AM EDT) Sodium 137 133 - 145 mmol/L LAB CHEMISTRY METHOD 07/16/2024 5:[address] [facility] Potassium 4.5 3.5 - 5.5 mmol/L LAB CHEMISTRY METHOD 07/16/2024 5:[address] [facility] Chloride 105 96 - 110 mmol/L LAB CHEMISTRY METHOD 07/16/2024 5:[address] [facility] CO2 26 21 - 32 mmol/L LAB CHEMISTRY METHOD 07/16/2024 5:[address] [facility] Anion Gap 6 3 - 11 LAB CHEMISTRY METHOD 07/16/2024 5:[address] [facility] Glucose 92 70 - 100 mg/dL LAB CHEMISTRY METHOD 07/16/2024 5:[address] [facility] BUN 11 5 - 25 mg/dL LAB CHEMISTRY METHOD 07/16/2024 5:[address] [facility] Creatinine 0.94 0.50 - 1.10 mg/dL LAB CHEMISTRY METHOD 07/16/2024 5:[address] [facility] eGFR 63 >=60 mL/min/1. 73m2 LAB CHEMISTRY METHOD 07/16/2024 5:[address] [facility] Comment:Calculation based on the Chronic Kidney Disease Epidemiology Collaboration (CKD-EPI) equation refit without adjustment for race. BUN/Creatinine Ratio 11.7 LAB CHEMISTRY METHOD 07/16/2024 5:08 PM EDT [facility] Calcium 9.5 8.5 - 10.5 mg/dL LAB CHEMISTRY METHOD 07/16/2024 5:08 PM EDT [facility] Blood Venous blood specimen / Unknown Venipuncture / Unknown 07/16/2024 9:36 AM EDT 07/16/2024 9:36 AM EDT Nhan Roque MD LAB BLOOD ORDERABLES Final Res ult [facility] [address] [place] [address], * Colonoscopy (02/01/2015) Colonoscopy no interpretation , abstracted Anatomical Region Laterality Modality Other Historical Provider HEALTH MAINTENANCE Final Result * Hepatitis C Screening (12/17/2013) Hepatitis C Screening abstracted Historical Provider HEALTH MAINTENANCE Final Result from Last 3 Months or Most Recently Relevant to Health Maintenance Insurance [facility] Advance Directives Documents on File Type Date Recorded Patient Collateral Specialist Expl anation Health Care Decision (hx) 10/04/2013 AD RAIN DIRECTIVE Health Care Decision (hx) 10/04/2013 AD RAIN DIRECTIVE Health Care Decision (hx) 10/04/2013 AD RAIN DIRECTIVE Health Care Decision (hx) 10/04/2013 AD RAIN DIRECTIVE Care Teams Motion Picture Set Up Worker Relationship Specialty Start Date End Date Nhan Roque MD [address] [place] [address] PCP - General Internal Medicine 03/10/24
[2025-01-20 11:20] VITALS: BMI 29.3
--- NOTE | 2025-01-21 10:42 | P.CONAN_ITS ---
Documented by User: Ivonne Cruz NP 02/03/25 14:22 HPI - Anesthesia Eval Consult details Narrative: 74yo F for Left Cubital Tunnel Release, Carpal Tunnel Release, 02/16/25 PMFSH Active Problems Active Problems: All Active Problems Left carpal tunnel syndrome (Acute) Cubital tunnel syndrome on left (Acute) Past Medical History Medical History Spinal stenosis at L4-L5 level Anxiety Hyperlipidemia Osteopenia IBS (irritable bowel syndrome) Peripheral neuralgia Ocular hypertension, bilateral Cortical cataract of left eye Nuclear sclerosis of both eyes Chronic pain Asteroid hyalosis of left eye Elevated cholesterol Surgical History Surgical History Hx of cervical discectomy Hx of excision of mass H/O colonoscopy Social History Social History Are you a primary long term acute care registered nurse to a significant other at home: No Do you presently have visiting nurse or other home services: No Alcohol intake: never Patient Tobacco Use Status: Former Tobacco user Tobacco use type: Cigarette Years Smoked: 5 Use of substances other than those prescribed or required for medical reasons: No Have you been hit, kicked, punched, or otherwise hurt by someone within the past year? If so, by whom?: No Spiritual Healthcare Practices: no Confucianism Healthcare Practices: no Cultural Healthcare Practices: no Are you DNR?: No Advance Directives on File: No Current occupational status: retired Current occupation: rt handed Meds Allergies Allergy/AdvReac Type Severity Reaction Status Date / Time codeine AdvReac Intermediate Hallucinati Verified 01/20/25 09:53 ons morphine AdvReac Intermediate Irritable Verified 01/20/25 11:10 Home Medications ?Medication ?Instructions ?Recorded ?Confirmed ?Last Taken ?Type atorvastatin 40 mg tablet 40 mg PO DAILY 12/23/2411/03 Unknown History calcium 500 mg (as 1 tab PO DAILY 12/23/2411/03 Unknown History carbonate)-vitamin D3 5 mcg (200 unit) tablet (Oyster Shell Calcium-Vitamin D3) lorazepam 0.5 mg tablet 0.5 mg PO DAILY 12/23/2411/03 Unknown History pregabalin 100 mg capsule 100 mg PO TID 12/23/2402/16 Unknown History tramadol 50 mg tablet 50 mg PO Q8H PRN severe pain 12/23/24 02/16/25 Unknown History Exam Height,Weight and Vital Signs: Height 5 ft 2.5 in Weight 73.936 kg Pertinent Lab Results Pertinent Lab Results: [facility] 07/2024 WNL Assessment and Plan Assessment Anesthesia Assessment: Chart Reviewed Documented by User: Paula Flynn MD 02/16/25 11:08 [facility] Past Medical History Medical History Spinal stenosis at L4-L5 level Anxiety Hyperlipidemia Osteopenia IBS (irritable bowel syndrome) Peripheral neuralgia Ocular hypertension, bilateral Cortical cataract of left eye Nuclear sclerosis of both eyes Chronic pain Asteroid hyalosis of left eye Elevated cholesterol Surgical History Surgical History Hx of cervical discectomy Hx of excision of mass H/O colonoscopy History of Problems with Anesthesia: No Social History Social History Are you a primary long term acute care registered nurse to a significant other at home: No Do you presently have visiting nurse or other home services: No Alcohol intake: never Patient Tobacco Use Status: Former Tobacco user Tobacco use type: Cigarette Years Smoked: 5 Use of substances other than those prescribed or required for medical reasons: No Have you been hit, kicked, punched, or otherwise hurt by someone within the past year? If so, by whom?: No Spiritual Healthcare Practices: no Confucianism Healthcare Practices: no Cultural Healthcare Practices: no Are you DNR?: No Advance Directives on File: No Current occupational status: retired Current occupation: rt handed Meds Allergies Allergy/AdvReac Type Severity Reaction Status Date / Time codeine AdvReac Intermediate Hallucinati Verified 01/20/25 09:53 ons morphine AdvReac Intermediate Irritable Verified 01/20/25 11:10 Home Medications ?Medication ?Instructions ?Recorded ?Confirmed ?Last Taken ?Type atorvastatin 40 mg tablet 40 mg PO DAILY 12/23/2411/03 Unknown History calcium 500 mg (as 1 tab PO DAILY 12/23/2411/03 Unknown History carbonate)-vitamin D3 5 mcg (200 unit) tablet (Oyster Shell Calcium-Vitamin D3) lorazepam 0.5 mg tablet 0.5 mg PO DAILY 12/23/2411/03 Unknown History pregabalin 100 mg capsule 100 mg PO TID 12/23/2402/16 Unknown History tramadol 50 mg tablet 50 mg PO Q8H PRN severe pain 12/23/24 02/16/25 Unknown History Exam Airway Mallampati Class: II TM Dist: >3cm Neck ROM: Full Loose/Missing/Broken Teeth: Yes and Upper (left upper central incisor missing) Heart: RRR Lungs: CTA Assessment and Plan Assessment Anesthesia Assessment: Anesthesia Plan Discussed Final Anesthetic Review History of Problems with Anesthesia: No NPO: Yes ASA Class: II Final Preanesthetic Review: Meds/Allgs Chart Reviewed, Consent Obtained/Reviewed and Anes Risks/Benef Reviewed Patient Risk: Low Procedure Risk: Low Anesthetic Plan Anesthetic Plan: GA Disposition: Standard PACU
[2025-02-12 07:07] VITALS: BMI 29.3
[2025-02-16] VITALS (9 sets, daily range): BP systolic 130–156; BP diastolic 59–87; PULSE 78–88; RESP 16–18; TEMP 36.1–36.4; O2SAT 97–100
--- NOTE | 2025-02-16 09:35 | MHC.SHP ---
Pre-Procedural Eval Section A - 24 Hr Update-Section A only Date of Service: 02/16/25 The patient is an INPATIENT: No Changes since office visit: No Cold of Flu in the past 2 weeks, No New Medical Problems, No Changes in Medication and No Patient answered all questions The patient has been examined within 24 hours of the surgical procedure. The History & Physical has been completed within 30 days and I have reviewed it.: Yes Section B - Complete if H&P > 30 days Chief Complaint: Lesion of ulnar nerve, left upper limb,carpal Allergies: Allergies Allergy/AdvReac Type Severity Reaction Status Date / Time codeine AdvReac Intermediate Hallucinati Verified 01/20/25 09:53 ons morphine AdvReac Intermediate Irritable Verified 01/20/25 11:10 Plan Diagnosis/Plan: Unchanged I have reviewed the history and physical and performed a pertinent physical examination on my patient. No changes have occurred unless specified. Time Spent With Patient Time: Total time managing care of this patient today ____ minutes.
--- NOTE | 2025-02-16 09:35 | W.PM.OPN ---
Operative Note Operative Note Date of Service: 02/16/25 Narrative: Operative Note Narrative: Preop diagnosis: 1. Left Cubital tunnel syndrome 2. Left carpal tunnel syndrome Postop diagnosis: Same Procedure: 1. Left Cubital Tunnel Release 2. Left carpal tunnel release Surgeon: Erin Cook MD Marketing Program Coordinator: None Anesthesia: General Anesthesia Findings: Thickening and fibrosis about the ulnar nerve at the cubital tunnel Implants: none Tourniquet time: 29 minutes EBL: 5.0 ml Specimen: none Drains: None Complications: None Disposition: Brought to the recovery room in stable condition Plan: Follow-up in 10-14 days for wound check, and suture removal Indications: The patient is 74 years old with left carpal tunnel syndrome and left cubital tunnel syndrome . The risks and benefits of operative treatment, including but not limited to risk of damage to blood vessels, nerves, tendons, infection, recurrence, persistent pain or numbness, incomplete resolution of preoperative symptoms, or need for further surgery were discussed with the patient and they wished to proceed with surgery. Procedure: Once consent was obtained patient was brought back to the operating suite and placed in the operating table in a supine position. Perioperative antibiotics and anesthesia was administered by the anesthesia team. The limb was prepped and draped in a standard surgical fashion, and a sterile tourniquet applied to the proximal aspect of the left upper extremity. The limb was elevated exsanguinated with Esmarch bandage and the tourniquet inflated to 250 mm of mercury for a total tourniquet time of 29 minutes. Once assured that we had a good block, a 2.0 cm longitudinal incision was made centered over the left carpal tunnel. The incision was made through the skin to the subcutaneous tissues using a #15 blade. Dissection was made down to the level of the transverse carpal ligament with care being taken to protect the palmar cutaneous nerve. Once the transverse carpal ligament was clearly visualized, a longitudinal incision was made in the transverse carpal ligament 1st using a #15 blade, then using tenotomy scissors under direct visualization. Care was taken to look for and protect the motor branch of the median nerve when seen in this area. Once satisfied with our carpal tunnel release the wound was irrigated with normal saline. A 6 cm gently curved but longitudinally oriented incision was made centered over the cubital tunnel of the left upper extremity. Incision was made through the skin to the subcutaneous tissues using a # 15 Blade. I then dissected down to the level of the medial epicondyle and the cubital tunnel using tenotomy scissors. Care was taken to protect the medial antebrachial cutaneous nerve. The ulnar nerve was identified just posterior to the medial intermuscular septum. The ulnar nerve was released in a proximal to distal direction using tenotomy in iris scissors while directly visualizing and protecting the ulnar nerve. Thickening and fibrosis was appreciated about the ulnar nerve as it passed through the cubital tunnel. The ulnar nerve was assessed as I passed the elbow through full flexion and extension and was found to remain stable within its groove. At this point the tourniquet was deflated and hemostasis obtained with a brief period of local pressure and bipolar electrocautery. The wound was copiously irrigated with normal saline. The subcutaneous layer was closed with 4-0 Vicryl suture, and the skin edges were reapproximated with 5-0 nylon suture. The wound was infiltrated with some 1% lidocaine with epinephrine for postop pain control and sterile dressings were applied. The patient appears to have tolerated the procedure well and with no complications. All digits were well vascularized at the conclusion of the case.
[2025-02-16] MEDS: Lactated Ringers 1,000 ML 100 ML IVCONT (10:35)
[2025-02-16] MEDS: oxyCODONE HCl Immed Release 5 MG TABLET PO (13:10)
== END 2025-02-16 14:35 | disposition home or self-care (01) ==
PROVIDERS: PCP Internal Medicine; Visit Provider Orthopaedic Surgery
PROC: (CPT 64718; principal; 2025-02-16 11:50)
PROC: (CPT 64721; 2025-02-16 11:50)
DX: G56.02 Carpal tunnel syndrome, left upper limb (principal); G56.22 Lesion of ulnar nerve, left upper limb; G89.29 Other chronic pain; M48.061 Spinal stenosis, lumbar region without neurogenic claudication; M85.80 Other specified disorders of bone density and structure, unspecified site; G62.9 Polyneuropathy, unspecified; I10 Essential (primary) hypertension; H40.053 Ocular hypertension, bilateral; H43.23 Crystalline deposits in vitreous body, bilateral; E78.00 Pure hypercholesterolemia, unspecified; F41.9 Anxiety disorder, unspecified; Z88.5 Allergy status to narcotic agent; Z98.890 Other specified postprocedural states; Z87.891 Personal history of nicotine dependence
CPT/HCPCS: 64721; 64718; J0131; J0690; J1100; J2003; J2004; J2704; J3010

== ENCOUNTER → 2025-02-16 09:44 | Outpatient (BNV) | payer OTHER, SELFPAY | PROVIDERS: PCP Internal Medicine; Visit Provider Orthopaedic Surgery | DX: G56.22 Lesion of ulnar nerve, left upper limb (principal); G56.02 Carpal tunnel syndrome, left upper limb | CPT/HCPCS: 64718; 64721 ==

== ENCOUNTER 2025-03-04 08:48 | Outpatient (AMB) | payer OTHER, SELFPAY ==
--- OUTSIDE RECORDS SUMMARY | 2025-03-04 08:50 | XMS_ITS | Clinical Summary ---
Author Organization [place] [address] [address] [facility] Address [address] [place] [address] Phone Care Team Providers Care Folder Tier Name Role Phone Nhan Roque MD Primary Care Provider [phone] Allergies Active Allergy Reactions Criticality Noted Date Comments Codeine 12/08/2013 Up set attiude Medications pregabalin (LYRICA) 100 mg capsule take 1 capsule by mouth three times a day for 30 days Active calcium carbonate-vitam in D (Oyster Shell Calcium-Vit D3) 500 mg-5 mcg (200 unit) per tablet Take 1 tablet by mouth 1 (one) time each day. 90 each 3 5 026 Active traMADoL (ULTRAM) 50 mg tablet Take 1 tablet (50 mg total) by mouth every 8 (eight) hours if needed for severe pain. 84 tablet 5 Active atorvastatin (LIPITOR) 40 mg tabletIndicatio ns:Hyperlipidem ia, unspecified TAKE 1 TABLET BY MOUTH EVERY DAY 90 tablet 5 Active LORazepam (ATIVAN) 0.5 mg tablet TAKE 1 TABLET BY MOUTH DAILY FOR 28 DAYS 28 tablet 5 Active atorvastatin (LIPITOR) 40 mg tabletIndicatio ns:Hyperlipidem ia, unspecified TAKE 1 TABLET BY MOUTH EVERY DAY 90 tablet 5 025 Discontinued LORazepam (ATIVAN) 0.5 mg tablet TAKE 1 TABLET BY MOUTH EVERY DAY FOR 28 DAYS (MAX 1/DAY) 28 tablet 11/12 025 Discontinued Active Problems Problem Noted Date [...] AM EDT Office Visit Internal Medicine - [address] [phone] Rachel Darby, SHUN Mixed hyperlipidemia (Primary Dx); [...] Cologuard test. WRIST MASS EXCISION Left PROCEDURE: OK EXCISION GANGLION WRIST DORSAL/VOLAR PRIMARY Medical History [...] Orientation Straight 07/18/2024 12 :25 PM EDT Last Filed Vital Signs Vital Sign Reading [...] AM EST Office Visit Internal Medicine - [address] [phone] Nhan Roque MD [address] [place] [phone] Health Maintenance Due Date Last Done Comments Drug Screen 1950 Naloxone Order 1948 Non-Opioid Controlled Substance Agreement 1948 Opioid Substance Agreement 1948 Pain Assessment 1948 Falls Risk Assessment 02/12/2022 Osteoporosis Screening (Bone [...] for biopsy. PQRI CPT II 3342F Code 39557, 65962 PQRI 225 CPT II 7025F TISSUE DENSITY: The breasts are almost entirely fatty. (BI-RADS Category A) IMPRESSION: Benign. BI-RADS CATEGORY: 2 - BENIGN RECOMMENDATION: Screening bilateral mammogram is recommended in 1 year. Mammo Location: [facility], [address] [place] [id number] -------- FINAL REPORT -------- Dictated By: Abelardo Deluna Dictated Date: 08/15/2024 09:40 ET Assigned Physician: Abelardo Deluna Reviewed and Electronically Signed By: Abelardo Deluna Signed Date: 08/15/2024 09:44 ET Workstation ID: [id number] Transcribed By: Self Edit Transcribed Date: 08/15/2024 09:40 ET Narrative 08/15/2024 9:44 AM EDT CLINICAL: The patient is a 74 years Female presenting for routine screening mammography. COMPARISON: Most recently 04/10/2023 and most remotely 03/02/2017. TECHNIQUE: Full-field digital mammography of the breasts bilaterally consisting of tomosynthesis in MLO and CC projection is performed in the [employer] 2000-D unit. Computer aided detection utilizing the [...] MLO and CC projection is performed in the[employer] 2000-D unit. Computer aided detection utilizing the [...] for biopsy. PQRI CPT II 3342F Code 94184, 64751 PQRI 225 CPT II 7025F TISSUE DENSITY: The breasts are almost entirely fatty. (BI-RADS CategoryA) IMPRESSION: Benign. BI-RADS CATEGORY: 2 - BENIGN RECOMMENDATION: Screening bilateral mammogram is recommended in 1 year. Mammo Location: [facility], [address] [place] [id number] -------- FINAL REPORT -------- Dictated By: Abelardo Deluna Dictated Date: 08/15/2024 09:40 ET Assigned Physician: Abelardo Deluna Reviewed and Electronically Signed By: Abelardo Deluna Signed Date: 08/15/2024 09:44 ET Workstation ID: [id number] Transcribed By: Self Edit Transcribed Date: 08/15/2024 09:40 ET us Self Referral Sppl IMG BI PROCEDURES Final Resul t * Lipid panel with reflex to direct LDL (07/16/2024 9:36 AM EDT) Cholesterol 167 0 - 200 mg/dL LAB CHEMISTRY METHOD 07/16/2024 5:08 PM EDT [facility] Triglycerides 116 0 - 150 mg/dL LAB CHEMISTRY METHOD 07/16/2024 5:08 PM EDT [facility] HDL 65 >=40 mg/dL LAB CHEMISTRY METHOD 07/16/2024 5:08 PM EDT [facility] LDL Calculated 79 0 - 100 mg/dL LAB CHEMISTRY METHOD 07/16/2024 5:08 PM EDT [facility] VLDL Cholesterol Rajeev 23.2 mg/dL LAB CHEMISTRY METHOD 07/16/2024 5:08 PM EDT [facility] Non HDL Chol. (LDL+VLDL) 102 <145 mg/dL LAB CHEMISTRY METHOD 07/16/2024 5:08 PM EDT [facility] Chol/HDL Ratio 2.6 0.0 - 4.4 LAB CHEMISTRY METHOD 07/16/2024 5:08 PM [facility] Blood Venous blood specimen / Unknown Venipuncture / Unknown 07/16/2024 9:36 AM EDT 07/16/2024 9:36 AM EDT us Nhan Roque MD LAB BLOOD ORDERABLES Final Res ult [facility] [address] [place] [address], [place] [phone] * Basic metabolic panel (07/16/2024 9:36 AM EDT) Sodium 137 133 - 145 mmol/L LAB CHEMISTRY METHOD 07/16/2024 5:08 PM [facility] Potassium 4.5 3.5 - 5.5 mmol/L LAB CHEMISTRY METHOD 07/16/2024 5:08 PM [facility] Chloride 105 96 - 110 mmol/L LAB CHEMISTRY METHOD 07/16/2024 5:08 PM [facility] CO2 26 21 - 32 mmol/L LAB CHEMISTRY METHOD 07/16/2024 5:08 PM [facility] Anion Gap 6 3 - 11 LAB CHEMISTRY METHOD 07/16/2024 5:08 PM [facility] Glucose 92 70 - 100 mg/dL LAB CHEMISTRY METHOD 07/16/2024 5:08 PM [facility] BUN 11 5 - 25 mg/dL LAB CHEMISTRY METHOD 07/16/2024 5:08 PM [facility] Creatinine 0.94 0.50 - 1.10 mg/dL LAB CHEMISTRY METHOD 07/16/2024 5:08 PM EDT [facility] eGFR 63 >=60 mL/min/1. 73m2 LAB CHEMISTRY METHOD 07/16/2024 5:08 PM EDT [facility] Comment:Calculation based on the Chronic Kidney Disease Epidemiology Collaboration (CKD-EPI) equation refit without adjustment for race. BUN/Creatinine Ratio 11.7 LAB CHEMISTRY METHOD 07/16/2024 5:08 PM EDT [facility] Calcium 9.5 8.5 - 10.5 mg/dL LAB CHEMISTRY METHOD 07/16/2024 5:08 PM EDT [facility] Blood Venous blood specimen / Unknown Venipuncture / Unknown 07/16/2024 9:36 AM EDT 07/16/2024 9:36 AM EDT Nhan Rouqe MD LAB BLOOD ORDERABLES Final Res ult [facility] [address] [place] [address], * Colonoscopy (02/01/2015) [facility] Colonoscopy no interpretation , abstracted Anatomical Region Laterality Modality Other Historical Provider HEALTH MAINTENANCE Final Result * Hepatitis C Screening (12/17/2013) [facility] Hepatitis C Screening abstracted Historical Lisa ENG HEALTH MAINTENANCE Final Result from Last 3 Months or Most Recently Relevant to Health Maintenance Insurance [facility] Advance Directives Documents on File Type Date Recorded 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
--- NOTE | 2025-03-04 08:57 | A.OFFVIS_ITS ---
Vital Signs 03/04/25 09:08 Height 5 ft 2.5 in Weight 163 lb BMI 29.3 Intake Visit Reasons: PO LT cubital/CTR 02/16/25 AR Intake Note: Talia is a 74 year old right hand dominant female who presents today for a Post-Operative Visit status post Left Cubital & Carpal Tunnel Release, DOS: 02/16/[address] Cook. Patient reports she is doing well. Denies numbness, tingling, finger locking. Patient is taking Tylenol PRN with relief. Sutures removed and steri strips applied. Allergies codeine Adverse Reaction (Intermediate, Verified 03/04/25 09:08) Hallucinations morphine Adverse Reaction (Intermediate, Verified 03/04/25 09:08) Irritable HPI HPI PO LT cubital/CTR 02/16/25 AR: Details: Talia is a 74 year old right hand dominant female who presents today for a Post-Operative Visit status post Left Cubital & Carpal Tunnel Release, DOS: 02/16/[address] Cook. Patient reports she is doing well. Denies numbness, tingling, finger locking. Patient is taking Tylenol PRN with relief. Sutures removed and steri strips applied. Patient states that she is very satisfied with her course of care, and has no other acute complaints or concerns at this time. [facility] Medical History (Updated 02/24/25 @ 12:57 by Ben Oneill DO) Neuropathic pain Spinal stenosis at L4-L5 level Anxiety Hyperlipidemia Osteopenia IBS (irritable bowel syndrome) Peripheral neuralgia Ocular hypertension, bilateral Cortical cataract of left eye Nuclear sclerosis of both eyes Chronic pain Asteroid hyalosis of left eye Elevated cholesterol Surgical History Hx of cervical discectomy Hx of excision of mass H/O colonoscopy Social History Are you a primary ambulatory care to a significant other at home: No Do you presently have visiting nurse or other home services: No Alcohol intake: never Patient Tobacco Use Status: Former Tobacco user Tobacco use type: Cigarette Years Smoked: 5 Current occupational status: retired Current occupation: rt handed Review of Systems Const All systems reviewed & are unremarkable except as noted in HPI and below Physical Exam Vital Signs: BMI result Body Mass Index 29.3 Extrem Other: Patient is alert, oriented, and in no acute distress. Neuro: Normal sensation of the tips of all digits of the left hand at this time Vascular: Cap refill brisk Pain: Minimal tenderness to palpation about the incision site on volar left wrist No tenderness to palpation around incision site a medial left elbow ROM: Patient is able to make a closed fist and extend all digits of the left hand fully Range of motion of the left elbow full and intact Skin: Well approximated and well healing incision sites noted on volar left wrist and medial left elbow No lacerations or abrasions. General: No ecchymosis, erythema, or evidence of infection. Psych: Appears grossly normal Affect normal Attitude cooperative Assessment & Plan Assessment & Plan (1) Cubital tunnel syndrome on left: Code(s): G56.22 - Lesion of ulnar nerve, left upper limb Category: Medical (2) Left carpal tunnel syndrome: Code(s): G56.02 - Carpal tunnel syndrome, left upper limb Category: Medical Plan 1. Status post left carpal and cubital tunnel releases DOS 02/16/2025 With good symptomatic resolution postoperatively Patient appears to be recovering well postoperatively Patient is educated about the typical recovery course No under water times one-week, 2 lb weight limit x2 weeks Patient appears to be recovering very well, and requires no further acute follow-up with us postoperatively Patient is educated and worrisome signs and symptoms, and should call us if they experience any of these, including but not limited to redness, swelling, increased pain, and discharge Patient understands this and is amenable to this plan Follow-up as needed Coding Level of Care Code Global (62715) Diagnoses Cubital tunnel syndrome on left G56.22 Left carpal tunnel syndrome G56.02
[2025-03-04 09:08] VITALS: BMI 29.3
== END 2025-03-04 09:21 | disposition home or self-care (01) ==
LOC: HO.HOS 08:49
PROVIDERS: PCP Internal Medicine
DX: G56.22 Lesion of ulnar nerve, left upper limb (principal); G56.02 Carpal tunnel syndrome, left upper limb
CPT/HCPCS: 99024